=== PATIENT | male | born 1995 | race Caucasian/White ===

== ENCOUNTER 2023-06-07 11:51 | Emergency (ER) | payer MEDICAID ==
[~2023-06-07] VITALS: Ht 177.8 cm; Wt 80.7 kg
--- NOTE | 2023-06-07 12:00 | NUR ---
Cheri haines in [facility] - 06/07/23 at 1206 by RAJEEV MD AT [facility] FOR EVAL
--- NOTE | 2023-06-07 12:01 | NUR ---
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
--- NOTE | 2023-06-07 12:04 | NUR ---
DR BRAY AT BED SIDE
[2023-06-07] MEDS ORDERED: TDAP [DIPH/PERTUSSIS/TET] 0.5 ML VIAL IM ONE ×2 (12:05→12:30)
[2023-06-07] MEDS ORDERED: IBUPROFEN 600 MG TABLET ONE (12:09)
[2023-06-07] MEDS ORDERED: DOXYCYCLINE HYCLATE (100 MG) 100 MG TABLET ONE (12:09)
--- NOTE | 2023-06-07 12:13 | NUR ---
ADMINISTER ALL MEDIATION PER DOCTORS ORDER.
--- NOTE | 2023-06-07 12:23 | NUR ---
X RAY AT BEDSIDE
[2023-06-07] MEDS ORDERED: DOXYCYCLINE HYCLATE (100 MG) 100 MG TABLET PO ONE (12:30)
[2023-06-07] MEDS ORDERED: IBUPROFEN 600 MG TABLET PO ONE (12:30)
[2023-06-07] MEDS ORDERED: DOXY100C2 PO (12:43)
[2023-06-07 13:01] VITALS: BP 116/61; TEMP 98.1; O2SAT 100
--- NOTE | 2023-06-07 13:01 | NUR ---
Patient discharged to home in stable condition. Written and verbal after care instructions given. Patient verbalizes understanding of instruction.
== END 2023-06-07 13:01 | disposition home or self-care (01) ==
LOC: ER 11:55
DX: M79.671 Pain in right foot (principal)
CPT/HCPCS: 73630-TC; 90715